=== PATIENT | female | born 1995 | race Caucasian/White ===

== ENCOUNTER 2019-12-20 09:39 | Inpatient (IN) | payer OTHER ==
[~2019-12-20] VITALS: Ht 175.3 cm; Wt 91.9 kg
[2019-12-20] VITALS (30 sets, daily range): BP systolic 120–173; BP diastolic 65–103
[~2019-12-20 09:39] MED LIST: miSOPROStol 50 MCG 1/2 TAB (S0191) PO SCH
[2019-12-20] MEDS ORDERED: MULTTAB20 PO (10:03)
--- NOTE | 2019-12-20 11:31 | HPEPDOC ---
Obstetrical History & Physical General Date of Admission Dec 20, 2019 at 09:40 History of Present Illness 24yo G1 at 41w1d presents for IOL for high BPs, concerning got GHTN vs preeclamp ana. She denies visual changes, abd pain or headaches. 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 BREAST: . ABDOMEN: Gravid and non-tender to touch. FETUS: Is vertex (VTX) by sterile vaginal examination (SVE), fetus is vertex (VTX) by Nagi. HEART RATE: Regular rate and rhythm. LUNGS: Clear to auscultation (CTA). Vital Signs/I&O Vital Signs Date Time Temp Pulse Resp B/P (MAP) Pulse Ox O2 Delivery O2 Flow Rate FiO2 12/20/19 10:23 107 140/100 (113) 12/20/19 10:06 99.2 20 Laboratory Data 24H LABS Laboratory Tests 2 12/20/19 10:04: Serology Scanned Report Hepatitis B Testing Pertinent Laboratoy Data Blood Type: O+ RBC Antibody Screen: Negative HIV: Negative Hepatitis B: Negative Rapid Plasma Reagin: Nonreactive Rubella: Immune Chlamydia/Gonorrhea: Negative Group B Streptococcus: Negative Glucose Tolerance Test: 121 Anatomy Ultrasound Placenta Location: Anterior Normal Anatomy: Yes Placenta Previa: No Vaginal Examination Dilation: 1cm Effacement: 30% Station: -3 Cervical Consistency: Firm Cervical Position: Posterior Presentation: Cephalic presentation Assessment Variability: Moderate Accelerations: Positive Decelerations: None Tocometer Contractions: No Assessment/Plan Assessment 24-year-old 1 at 41 weeks 1 day estimated gestational age with elevated blood pressure concern for gestational hypertension versus preeclampsia Reassuring status -Plan is obtained preeclamptic labs and spot urine -Induction labor -Patient and thoroughly counseled regarding induction of labor discussed medi cations also procedures performed in labor and delivery she is verbally consented for emergency surgery blood products anesthesia and desires to proceed with admission -Will initiate her induction labor with 50 g cytotec Plan Admit and orient. Top Inventory Control Executive and consent. Diet: Regular. Group B Streptococcus (GBS) negative. Labs and intravenous (IV) per unit protocol. Counseled on Pitocin and induction of labor (IOL). Anticipate normal spontaneous delivery (). C-S as appropriate. SHANE NORWOOD MD. Dec 20, 2019 11:31
[2019-12-20 11:49] LABS: HEMATOCRIT 37.7 % (36.0-47.0); HEMOGLOBIN 12.4 g/dl (12.0-15.5); MEAN CORPUSCULAR HEMOGLOBIN 29.7 pg (27.0-33.0); MEAN CORPUSCULAR HGB CONC 32.9 g/dl (32.0-36.5); MEAN CORPUSCULAR VOLUME 90.2 fl (80.0-96.0); PLATELET COUNT, AUTOMATED 242 10^3/uL (150-450); RED BLOOD COUNT 4.18 10^6/uL (4.00-5.40)
[2019-12-20 11:56] LABS: ALT/SGPT 22 U/L (12-78); BILIRUBIN,TOTAL 0.2 MG/DL (0.2-1.0); CREATININE FOR GFR 0.85 MG/DL (0.55-1.30); GLOMERULAR FILTRATION RATE > 60.0 (>60); LDH LACTATE DEHYDROGENASE 177 U/L (84-246); URIC ACID 6.4 MG/DL (2.6-6.0)
[2019-12-20 12:28] LABS: TOTAL PROTEIN,RANDOM URINE 10.7 MG/DL (0.0-12.0)
[2019-12-20] MEDS ORDERED: LACTATED RINGER'S 1000 ML IV ONE (15:15)
[2019-12-20] MEDS: miSOPROStol 50 MCG 1/2 TAB (S0191) PO SCH ×2 (16:24→22:03)
[2019-12-20] MEDS ORDERED: BUTORPHANOL 2 MG/ML INJ (J0595) IV ONE (20:45)
[2019-12-20] MEDS ORDERED: PROMETHAZINE INJ 25 MG/ML VIAL (J2550) IV ONE (20:45)
[2019-12-20] MEDS ORDERED: BUTORPHANOL 2 MG/ML INJ (J0595) IV PRN (21:00)
[2019-12-20] MEDS ORDERED: PROMETHAZINE INJ 25 MG/ML VIAL (J2550) IV PRN (21:00)
[2019-12-20] MEDS ORDERED: FENTANYL 2MCG/ML ROPIVACAINE 0.2% IN 0.9% NACL 100ML IVBAG As Ordered ONE (23:40)
[2019-12-21] VITALS (77 sets, daily range): BP systolic 109–180; BP diastolic 56–115
[2019-12-21 00:21] LABS: HEMATOCRIT 37.5 % (36.0-47.0); HEMOGLOBIN 12.3 g/dl (12.0-15.5); MEAN CORPUSCULAR HEMOGLOBIN 29.9 pg (27.0-33.0); MEAN CORPUSCULAR HGB CONC 32.8 g/dl (32.0-36.5); MEAN CORPUSCULAR VOLUME 91.2 fl (80.0-96.0); PLATELET COUNT, AUTOMATED 243 10^3/uL (150-450); RED BLOOD COUNT 4.11 10^6/uL (4.00-5.40); WHITE BLOOD COUNT 16.3 10^3/uL (4.0-10.0)
[2019-12-21] MEDS: FENTANYL/ROPIVACAINE/NACL BAG 100 ML EPIDURAL SCH ×3 (00:58→16:44)
[2019-12-21] MEDS ORDERED: ePHEDrine SULFATE 25 MG/5 ML(5MG/ML) SYRINGE IV PRN (01:45)
[2019-12-21] MEDS ORDERED: diphenhydrAMINE 50MG/ML VIAL (J1200) IV PRN ×2 (01:45→23:12)
[2019-12-21] MEDS ORDERED: EPIDURAL/PCA KEYS XX PRN (01:45)
[2019-12-21] MEDS ORDERED: NALOXONE INJ 0.4MG/1ML VIAL (J2310 PER 1MG) IV PRN ×3 (01:45→23:12)
[2019-12-21] MEDS ORDERED: REFRIGERATOR IV KEYS XX PRN (01:45)
[2019-12-21] MEDS ORDERED: ONDANSETRON 4MG/2ML VIAL IV PRN ×2 (01:45→23:12)
[2019-12-21] MEDS ORDERED: LACTATED RINGER'S 1000 ML IV PRN (01:45)
[2019-12-21] MEDS ORDERED: EPIDURAL COMMENT XX SCH (01:45)
--- NOTE | 2019-12-21 08:59 | IPNPDOC ---
Obstetrical Progress Note Date of Service Dec 21, 2019 Subjective Andrews of care note; report received from Dr. Goyal at 0730 S: Dotty is a 24yo at 41+2wks today, EDC [id number]. Pt was admitted yesterday for PDIOL/GHTN. Her Pre-E labs were negative and she remains asymptomatic today. She is s/p Cytotec x2, SROM at 2258 last PM (clear fluid), and epidural around 0100 this morning. She is comfortable with epidural in place and has no concerns at this time. Objective O: VSS, afebrile, BPs range from mild range to normotensive. FHR 135-140, minimal variability with periods of moderate and some accels, 1x variable deceleration noted. Pt has received a 300mL LR bolus and did have O2 previous to RN shift change. CTX by TOCO: q2-2.5, moderate by palpation VE: 6/80/-2, bloody show and caput palpable Laboratory Tests 12/20/19 10:54 12/20/19 23:46 Vital Signs Date Time Temp Pulse Resp B/P (MAP) Pulse Ox O2 Delivery O2 Flow Rate FiO2 12/21/19 08:11 97 148/95 (112) 12/21/19 07:22 98.2 16 Sterile Vaginal Examination Cervical Position: Anterior Postion/Presentation: Cephalic presentation Assessment and Plan Group B Streptococcus: Negative Anticipate: Vaginal Delivery Additional Comments A: 24yo at 41+2wks, entering into active labor, VSS with mild range BPs, Category II FHT d/t minimal variability. P: CEFM x2 Can use LR bolus, repositioning, and O2 for minimal variability. Fetus does respond to stimulus as evidenced by accel during VE Close monitoring of maternal/ status Monitor for s/sx of Pre-E Consider pitocin augmentation if labor slows or ctx space out Consult with OB as indicated Anticipate HANNA SHER CNM Dec 21, 2019 08:59
[2019-12-21] MEDS ORDERED: OXYTOCIN 30 UNITS IN 0.9% NaCl 500ML IV BAG (J2590) As Ordered ONE (11:42)
[2019-12-21] MEDS ORDERED: OXYTOCIN DRIP 30 UNITS in IV 1 EA IV SCH (13:30)
--- NOTE | 2019-12-21 14:10 | IPNPDOC ---
Obstetrical Progress Note Date of Service Dec 21, 2019 Subjective Labor Progress Note S: Dotty is a 24yo at 41+2wks, currently in active labor s/p IOL for PDIOL/GHTN. She is very comfortable with her epidural and feeling some rectal pressure. She consents to cervical exam at this time. Objective O: VSS, afebrile, BPs ranging from normotensive to mild range, pt remains asymptomatic at this time FHR 150s, moderate variability with periods of minimal variability, + accels, no decelerations noted *Pt noted to have a period of tachycardia; pt remains afebrile; 500mL LR was administered and tachycardia resolved CTX by TOCO: spaced to 3-6 minutes apart VE: 7/90/0 Vital Signs Date Time Temp Pulse Resp B/P (MAP) Pulse Ox O2 Delivery O2 Flow Rate FiO2 12/21/19 13:39 98 134/82 (99) 12/21/19 12:41 99.1 18 Assessment Heart Rate Tracing: Category I (at time of exam) Tocometer Contractions: Yes Frequency: irregular Sterile Vaginal Examination Postion/Presentation: Cephalic presentation Assessment and Plan Status: Reassuring Group B Streptococcus: Negative Anticipate: Vaginal Delivery Additional Comments A: 24yo at 41+2wks, active labor, but now with slowed progress. Category I FHT at time of exam. P: CEFM x2 Close monitoring of maternal/ status Close monitoring for s/sx of chorio Close monitoring of BP and s/sx of Pre-E Start pitocin augmentation per low dose protocol Interventions PRN for Category II FHT Consult with OB if indicated Anticipate HANNA MEJIA CNM Dec 21, 2019 14:09
[2019-12-21] MEDS ORDERED: fentaNYL 100 MCG/2 ML INJECTION (J3010) As Ordered ONE ×2 (15:41→23:10)
[2019-12-21] MEDS ORDERED: ACETAMINOPHEN 500 MG TAB As Ordered ONE (15:41)
[2019-12-21] MEDS ORDERED: ACETAMINOPHEN 500 MG TAB PO ONE (15:45)
[2019-12-21] MEDS ORDERED: AMPICILLIN 2 GM VIAL (J0290 PER 500MG) As Ordered ONE (15:47)
[2019-12-21] MEDS: LR 1,000 ML IV SCH ×2 (15:57→22:18)
[2019-12-21] MEDS: AMPICILLIN SOD 2 GM in D5W MINI-BAG PLUS 100 ML IV SCH ×2 (15:58→22:00)
[2019-12-21] MEDS ORDERED: LABETALOL 100MG/20ML VIAL IV STA (15:59)
--- NOTE | 2019-12-21 16:28 | IPNPDOC ---
Obstetrical Progress Note Date of Service Dec 21, 2019 Subjective S: 24yo at 41+2wks, feeling more pain with contractions, desiring epidural top-off for pain control. Pt does not have desire or urge to push. Pt denies FRIEDMAN/Visual changes/ruq pain; denies feeling chills. Objective O: Febrile (temp 100.6 rectally) and now severe range BPs (151-180/102-111) FHR 160s, moderate variability, early decelerations noted CTX q2-3 minutes Pitocin running at 2mu/min VE: 9/100/0 Vital Signs Date Time Temp Pulse Resp B/P (MAP) Pulse Ox O2 Delivery O2 Flow Rate FiO2 12/21/19 14:38 99.6 90 147/92 (110) 12/21/19 12:41 18 Assessment Heart Rate Tracing: Category II Tocometer Contractions: Yes Sterile Vaginal Examination Postion/Presentation: Cephalic presentation Assessment and Plan Anticipate: Vaginal Delivery Additional Comments A: 24yo at 41+2wks, now with severe range BPs and diagnosis of chorio (based on maternal temp and tachycardia); Category II FHT d/t tachycardia. P: Consulted with Dr. Hooks, will administer 20mg labetalol IV push over 2 minutes and follow ACOG labetalol algorithm; close monitoring of BPs Start ampicillin 2g q6h and gentamycin x1 (450mg based on 5mg/kg protocol) 1gm tylenol PO administered Close monitoring of maternal status Transferred care to Dr. Hooks Anticipate HANNA MEJIA CNM Dec 21, 2019 16:28
[2019-12-21] MEDS ORDERED: GENTAMICIN 450 MG in D5W 50 ML IV ONE (17:00)
--- NOTE | 2019-12-21 17:30 | IPNPDOC ---
Text Note Date of Service The patient was seen on 12/21/19. NOTE REVIEW OF PROGRESS TO DATE . 24 Y.O AT 41 .2 WEEKS ADMITTED FOR IOL AT 41.1 WEEKS HX GHTN VERSUS PRE E . TO DATE HAS 2 CYTOTEC AND AUGMENT WITH PITOCIN , NOW AT 2 MUNITS . ADMISSION BP 140/100 THEN HAD 2 SEVERE RANGE BP WITH NO CLONUS NO RUQ PAIN NO VISUAL DISTURBANCES . HAD ELEVATED RECTAL TEMP HOWEVER TEMPORAL DID NOT CORRELATE TO RECTAL TEMPERATURE. PLAN OF CARE WAS LABETALOL 20 MG IV PER PROTOCOL TO MANAGE SEVERE RANGE BLOOD PRESSURES . TYLENOL OR TEMPERATURE . WITH HYDRATION AND TOP UP EPIDURAL FOR PAIN CONTROL BP RANGE DOWN TO MID RANGE BP ALSO VARIABILITY NORMAL RANGE 120-150 MODERATE AND BASE LINE NORMAL . PELVIC EXAM 9 CM DILATED OT FACING RIGHT NO INCREASE HEAT IN VAGINA NO MOULDING NOT WELL APPLIED -3 STATION. PLAN IS CONTROL BP MONITOR TEMPERATURE HAVE ADEQUATE CONTRACTIONS REASSESSMENT 1.5 HOURS FOR PROGRESS. PATIENT EXPRESSED UNDERSTANDING VS,Fishbone, I+O VS, Fishbone, I+O Vital Sign - Last 24 Hours 12/20/19 12/20/19 12/20/19 12/20/19 17:56 18:25 18:55 19:25 Temp 98.3 Pulse 98 86 85 91 Resp 18 B/P (MAP) 134/95 (108) 139/74 (95) 136/75 (95) 139/97 (111) 12/20/19 12/20/19 12/20/19 12/20/19 19:55 20:26 20:55 21:14 Pulse 81 88 80 Resp 18 B/P (MAP) 143/94 (110) 135/98 (110) 145/94 (111) 12/20/19 12/20/19 12/20/19 12/20/19 21:17 21:46 22:15 22:46 Temp 98.2 98.4 Pulse 80 88 86 93 Resp 18 18 B/P (MAP) 140/91 (107) 144/94 (111) 130/67 (88) 171/96 (121) 12/20/19 12/20/19 12/20/19 12/21/19 23:17 23:21 23:46 00:16 Pulse 97 110 110 120 B/P (MAP) 173/93 (119) 142/83 (102) 148/84 (105) 147/75 (99) 12/21/19 12/21/19 12/21/19 12/21/19 00:44 00:45 00:51 00:54 Temp 98.7 Pulse 108 113 110 109 Resp 20 B/P (MAP) 152/86 (108) 142/79 (100) 154/97 (116) 146/98 (114) 12/21/19 12/21/19 12/21/19 12/21/19 00:56 01:01 01:06 01:12 Pulse 110 101 106 104 B/P (MAP) 135/94 (108) 131/86 (101) 121/85 (97) 125/80 (95) 12/21/19 12/21/19 12/21/19 12/21/19 01:16 01:21 01:27 01:31 Pulse 107 110 111 106 B/P (MAP) 127/78 (94) 130/83 (99) 121/83 (96) 118/76 (90) 12/21/19 12/21/19 12/21/19 12/21/19 01:36 02:08 02:37 03:08 Temp 98.2 Pulse 102 96 96 75 Resp 18 B/P (MAP) 112/68 (83) 117/66 (83) 109/56 (73) 125/74 (91) 12/21/19 12/21/19 12/21/19 12/21/19 03:37 04:07 04:38 05:08 Temp 98.0 Pulse 81 94 82 90 Resp 18 B/P (MAP) 119/76 (90) 118/82 (94) 137/74 (95) 140/93 (109) 12/21/19 12/21/19 12/21/19 12/21/19 05:37 06:08 06:37 07:08 Temp 98.2 Pulse 77 73 76 100 Resp 18 16 B/P (MAP) 127/82 (97) 125/77 (93) 128/83 (98) 124/81 (95) 12/21/19 12/21/19 12/21/19 12/21/19 07:22 07:37 08:09 08:11 Temp 98.2 Pulse 100 99 122 97 Resp 16 B/P (MAP) 124/81 (95) 132/85 (101) 146/115 (125) 148/95 (112) 12/21/19 12/21/19 12/21/19 12/21/19 08:40 09:38 10:10 10:38 Pulse 110 97 100 120 Resp 18 B/P (MAP) 152/94 (113) 141/86 (104) 153/98 (116) 156/98 (117) 12/21/19 12/21/19 12/21/19 12/21/19 11:09 11:38 12:08 12:38 Temp 99.8 Pulse 107 98 106 92 B/P (MAP) 132/87 (102) 143/91 (108) 154/101 (118) 159/97 (117) 12/21/19 12/21/19 12/21/19 12/21/19 12:41 13:09 13:39 14:08 Temp 99.1 Pulse 104 96 98 100 Resp 18 B/P (MAP) 146/95 (112) 126/80 (95) 134/82 (99) 140/83 (102) 12/21/19 12/21/19 12/21/19 12/21/19 14:38 15:09 15:19 15:33 Temp 99.6 Pulse 90 98 105 105 B/P (MAP) 147/92 (110) 175/98 (123) 150/101 (117) 151/110 (124) 12/21/19 12/21/19 12/21/19 12/21/19 15:38 15:46 15:48 15:57 Temp 100.6 Pulse 114 100 102 105 Resp 20 B/P (MAP) 164/102 (122) 157/102 (120) 161/104 (123) 167/110 (129) 12/21/19 12/21/19 12/21/19 12/21/19 16:12 16:16 16:17 16:22 Pulse 101 101 100 103 B/P (MAP) 180/111 (134) 180/111 165/105 (125) 149/101 (117) 12/21/19 12/21/19 12/21/19 12/21/19 16:33 16:43 16:53 17:03 Temp 98.9 Pulse 99 101 97 96 Resp 16 B/P (MAP) 152/95 (114) 153/93 (113) 133/74 (93) 132/72 (92) Laboratory Tests 12/20/19 23:46 Vital Signs Date Time Temp Pulse Resp B/P (MAP) Pulse Ox O2 Delivery O2 Flow Rate FiO2 12/21/19 17:03 96 132/72 (92) 12/21/19 16:43 98.9 16 I&O- Last 24 Hours up to 6 AM 12/21/19 05:59 Intake Total 500 ml Balance 500 ml Arsenio Hooks MD Dec 21, 2019 17:23
--- NOTE | 2019-12-21 20:26 | IPNPDOC ---
Text Note Date of Service The patient was seen on 12/21/19. NOTE review progress to date. 2000 hours adequate contractions on 12 munits Pitocin patient afebrile blood pressure stable pelvic exam now small anterior lip no moulding no increased heat in vagina . plan is continue reassess 1 hour VS,Fishbone, I+O VS, Fishbone, I+O Laboratory Tests 12/20/19 23:46 Vital Signs Date Time Temp Pulse Resp B/P (MAP) Pulse Ox O2 Delivery O2 Flow Rate FiO2 12/21/19 19:10 90 136/80 (98) 12/21/19 16:43 98.9 16 I&O- Last 24 Hours up to 6 AM 12/21/19 06:00 Intake Total 500 ml Balance 500 ml Vital Signs/I&O Vital Signs Date Time Temp Pulse Resp B/P (MAP) Pulse Ox O2 Delivery O2 Flow Rate FiO2 12/21/19 19:10 90 136/80 (98) 12/21/19 18:55 102 130/78 (95) 12/21/19 18:40 97 137/79 (98) 12/21/19 18:25 99 129/76 (93) 12/21/19 17:53 94 133/83 (100) 12/21/19 17:43 96 134/89 (104) 12/21/19 17:34 97 138/92 (107) 12/21/19 17:23 101 141/93 (109) 12/21/19 17:03 96 132/72 (92) 12/21/19 16:53 97 133/74 (93) 12/21/19 16:43 98.9 101 16 153/93 (113) 12/21/19 16:33 99 152/95 (114) 12/21/19 16:22 103 149/101 (117) 12/21/19 16:17 100 165/105 (125) 12/21/19 16:16 101 180/111 12/21/19 16:12 101 180/111 (134) 12/21/19 15:57 105 167/110 (129) 12/21/19 15:48 102 161/104 (123) 12/21/19 15:46 100 157/102 (120) 12/21/19 15:38 100.6 114 20 164/102 (122) 12/21/19 15:33 105 151/110 (124) 12/21/19 15:19 105 150/101 (117) 12/21/19 15:09 98 175/98 (123) 12/21/19 14:38 99.6 90 147/92 (110) 12/21/19 14:08 100 140/83 (102) 12/21/19 13:39 98 134/82 (99) 12/21/19 13:09 96 126/80 (95) 12/21/19 12:41 99.1 104 18 146/95 (112) 12/21/19 12:38 92 159/97 (117) 12/21/19 12:08 106 154/101 (118) 12/21/19 11:38 98 143/91 (108) 12/21/19 11:09 99.8 107 132/87 (102) 12/21/19 10:38 120 156/98 (117) 12/21/19 10:10 100 18 153/98 (116) 12/21/19 09:38 97 141/86 (104) 12/21/19 08:40 110 152/94 (113) 12/21/19 08:11 97 148/95 (112) 12/21/19 08:09 122 146/115 (125) 12/21/19 07:37 99 132/85 (101) 12/21/19 07:22 98.2 100 16 124/81 (95) 12/21/19 07:08 98.2 100 16 124/81 (95) 12/21/19 06:37 76 18 128/83 (98) 12/21/19 06:08 73 125/77 (93) 12/21/19 05:37 77 127/82 (97) 12/21/19 05:08 90 140/93 (109) 12/21/19 04:38 98.0 82 18 137/74 (95) 12/21/19 04:07 94 118/82 (94) 12/21/19 03:37 81 119/76 (90) 12/21/19 03:08 75 125/74 (91) 12/21/19 02:37 98.2 96 18 109/56 (73) 12/21/19 02:08 96 117/66 (83) 12/21/19 01:36 102 112/68 (83) 12/21/19 01:31 106 118/76 (90) 12/21/19 01:27 111 121/83 (96) 12/21/19 01:21 110 130/83 (99) 12/21/19 01:16 107 127/78 (94) 12/21/19 01:12 104 125/80 (95) 12/21/19 01:06 106 121/85 (97) 12/21/19 01:01 101 131/86 (101) 12/21/19 00:56 110 135/94 (108) 12/21/19 00:54 109 146/98 (114) 12/21/19 00:51 110 154/97 (116) 12/21/19 00:45 113 142/79 (100) 12/21/19 00:44 98.7 108 20 152/86 (108) 12/21/19 00:16 120 147/75 (99) 12/20/19 23:46 110 148/84 (105) 12/20/19 23:21 110 142/83 (102) 12/20/19 23:17 97 173/93 (119) 12/20/19 22:46 98.4 93 18 171/96 (121) 12/20/19 22:15 86 130/67 (88) 12/20/19 21:46 88 144/94 (111) 12/20/19 21:17 98.2 80 18 140/91 (107) 12/20/19 21:14 18 12/20/19 20:55 80 145/94 (111) 12/20/19 20:26 88 135/98 (110) Intake & Output 12/21/19 06:00 Intake Total 500 ml Balance 500 ml Laboratory Tests 12/20/19 23:46: White Blood Count 16.3H, Red Blood Count 4.11, Hemoglobin 12.3, Hematocrit 37.5, Mean Corpuscular Volume 91.2, Mean Corpuscular Hemoglobin 29.9, Mean Corpuscular Hemoglobin Concent 32.8, Red Cell Distribution Width 12.8, Platelet Count 243, Nucleated Red Blood Cells % (auto) 0.0 Current Medications Medications (Trade) Dose Ordered Sig/Jannie Route PRN Reason Start Time Stop Time Status Last Admin Dose Admin Ampicillin Sodium 2 gm/Dextrose 100 ml @ 200 mls/hr Q6H IV 12/21/19 16:00 12/21/19 22:29 12/21/19 15:58 200 MLS/HR Lactated Ringer's 1,000 ml @ 125 mls/hr Q8H IV 12/21/19 13:22 12/21/19 15:57 125 MLS/HR Misoprostol (Cytotec) 50 mcg Q4H PO 12/20/19 16:00 12/20/19 22:03 50 MCG Oxytocin 30 units/ IV Miscellaneous Supplies 500 ml @ 0 mls/hr DRIP IV 12/21/19 13:30 12/21/19 15:58 2 MLS/HR Ropivacaine/ Fentanyl/NS 100 ml @ 10 mls/hr Q10H EPIDURAL 12/21/19 01:45 12/24/19 01:44 12/21/19 16:44 10 MLS/HR Vital Signs Date Time Temp Pulse Resp B/P (MAP) Pulse Ox O2 Delivery O2 Flow Rate FiO2 12/21/19 19:10 90 136/80 (98) 12/21/19 16:43 98.9 16 I&O- Last 24 Hours up to 6 AM 12/21/19 06:00 Intake Total 500 ml Balance 500 ml Laboratory Data 24H LABS Laboratory Tests 2 12/20/19 23:46: Nucleated Red Blood Cells % (auto) 0.0 CBC/BMP Laboratory Tests 12/20/19 23:46 Arsenio Hooks MD Dec 21, 2019 20:22
[2019-12-21] MEDS ORDERED: BICITRA 30ML SOLN UDC PO ONE (22:00)
[2019-12-21] MEDS ORDERED: AZITHROMYCIN INJ 500 MG, VIAL MATE ADAPTER 1 EACH in D5W 250 ML IV ONE (22:00)
[2019-12-21] MEDS ORDERED: BUPIVACAINE HCL 0.25% 10ML VIAL SC ONE (22:00)
[2019-12-21] MEDS ORDERED: ACETAMINOPHEN 650 MG SUPP PR SCH (22:00)
[2019-12-21] MEDS ORDERED: ceFAZolin SOD 2 GM in IV 1 EA IV ONE (22:00)
[2019-12-21 22:29] LABS: HEMATOCRIT 36.8 % (36.0-47.0); HEMOGLOBIN 11.8 g/dl (12.0-15.5); MEAN CORPUSCULAR HEMOGLOBIN 29.6 pg (27.0-33.0); MEAN CORPUSCULAR HGB CONC 32.1 g/dl (32.0-36.5); MEAN CORPUSCULAR VOLUME 92.2 fl (80.0-96.0); PLATELET COUNT, AUTOMATED 213 10^3/uL (150-450); RED BLOOD COUNT 3.99 10^6/uL (4.00-5.40); WHITE BLOOD COUNT 20.4 10^3/uL (4.0-10.0)
--- NOTE | 2019-12-21 22:37 | IPNPDOC ---
Text Note Date of Service The patient was seen on 12/21/19. NOTE 2000 hours -2200 hours reviewed progress adequate contractions noted category 2 strip afebrile no cervical change no progress discussed cs patient agrees with plan reviewed risks re hemorrhage infection perforation reoperation remote blood transfusion remote hysterectomy for life threatening bleeding infant to NICU and laceration. expressed understanding signed consent VS,Rodrigobone, I+O VS, Fishbone, I+O Laboratory Tests 12/20/19 23:46 Vital Signs Date Time Temp Pulse Resp B/P (MAP) Pulse Ox O2 Delivery O2 Flow Rate FiO2 12/21/19 22:06 115 143/98 (113) 12/21/19 21:17 99.0 18 I&O- Last 24 Hours up to 6 AM 12/21/19 06:00 Intake Total 500 ml Balance 500 ml Arsenio Hooks MD Dec 21, 2019 22:29
[2019-12-21] MEDS ORDERED: OXYTOCIN INJ 10 UNITS/ML VIAL (J2590) As Ordered ONE ×2 (22:38→23:44)
[2019-12-21] MEDS ORDERED: LIDOCAINE PRES-FREE 2% 10ML AMP As Ordered ONE ×2 (22:38→23:32)
[2019-12-21] MEDS ORDERED: ONDANSETRON 4MG/2ML VIAL As Ordered ONE (22:38)
[2019-12-21] MEDS ORDERED: MORPHINE PRES-FREE INJ 10 MG/10 ML VIAL (J2274) As Ordered ONE (22:38)
[2019-12-21] MEDS ORDERED: KETAMINE HCL 200 MG/20 ML VIAL As Ordered ONE (23:02)
[2019-12-21] MEDS ORDERED: METOCLOPRAMIDE INJ 10MG/2ML VIAL (J2765 PER 1) IV PRN (23:12)
[2019-12-21 23:17] LABS: CORD GAS ABE V -3.2; CORD GAS HCO3 V 22.4 MEQ/L; CORD GAS O2 SAT V 55.4 %; CORD GAS PCO2 V 42.3 mmHg; CORD GAS PH V 7.342 UNITS; CORD GAS PO2 V 23.8 mmHg; CORD GAS SBC V 20.7 MEQ/L; CORD GAS TCO2 V 23.7 MEQ/L
[2019-12-21 23:18] LABS: CORD GAS ABE A -4.1; CORD GAS HCO3 A 21.7 MEQ/L; CORD GAS O2 SAT A 55.6 %; CORD GAS PCO2 A 42.4 mmHg; CORD GAS PH A 7.327 UNITS
[2019-12-21] MEDS ORDERED: propofoL 200 MG/20 ML VIAL As Ordered ONE (23:27)
[2019-12-22] VITALS (8 sets, daily range): BP systolic 120–161; BP diastolic 68–109
[2019-12-22] MEDS ORDERED: LR 1,000 ML IV SCH ×2 (00:13→00:45)
[2019-12-22] MEDS ORDERED: MOM 30ML SUSPENSION UDC PO PRN (00:15)
[2019-12-22] MEDS ORDERED: OXYTOCIN INJ 10 UNITS/ML VIAL (J2590) IV ONE (00:15)
[2019-12-22] MEDS ORDERED: ACETAMINOPHEN 650 MG SUPP PR PRN (00:15)
[2019-12-22] MEDS ORDERED: ANUSOL HC CREAM 30GM TOP PRN (00:15)
[2019-12-22] MEDS ORDERED: DOCUSATE SODIUM 100 MG CAP PO PRN (00:15)
[2019-12-22] MEDS ORDERED: MEASLES,MUMPS,RUBELLA VACCINE INJ (MMR-II) (90707) SC SCH (00:15)
[2019-12-22] MEDS ORDERED: ACETAMINOPHEN 500 MG TAB PO PRN (00:15)
[2019-12-22] MEDS ORDERED: ACETAMINOPHEN TAB 650MG DOSE (2X325MG) PO PRN (00:15)
[2019-12-22] MEDS ORDERED: METHYLERGONOVINE MALEATE 0.2 MG TAB PO PRN (00:15)
[2019-12-22] MEDS ORDERED: OXYTOCIN DRIP 30 UNITS in IV 1 EA IV ONE (00:15)
[2019-12-22] MEDS ORDERED: RHOGAM 300 MCG (1500 IU) INJ (J2790) IM SCH (00:15)
[2019-12-22] MEDS ORDERED: LABETALOL 100MG/20ML VIAL As Ordered ONE (00:18)
[2019-12-22] MEDS ORDERED: LABETALOL 100MG/20ML VIAL IV ONE (00:30)
[2019-12-22] MEDS ORDERED: fentaNYL 100 MCG/2 ML INJECTION (J3010) As Ordered ONE (00:34)
[2019-12-22] MEDS: fentaNYL 100 MCG/2 ML INJECTION (J3010) IV PRN ×3 (00:39→01:33)
[2019-12-22] MEDS ORDERED: METOCLOPRAMIDE INJ 10MG/2ML VIAL (J2765 PER 1) IV PRN (00:45)
[2019-12-22] MEDS ORDERED: PERCOCET 5MG/325MG TAB PO PRN (00:45)
[2019-12-22] MEDS ORDERED: ONDANSETRON 4MG/2ML VIAL IV PRN (00:45)
--- NOTE | 2019-12-22 00:57 | IPNPDOC ---
Text Note Date of Service The patient was seen on 12/22/19. NOTE review post op recovery severe range blood pressures . Patient did not have good pain control for procedure as patient is GHTN possible pr e e labetalol protocol was instituted . Also antibiotics initiated re CHORIO for 24 hours Reassessment in 1 hour re blood pressure . VS,Fishbone, I+O VS, Fishbone, I+O Laboratory Tests 12/21/19 22:25 Vital Signs Date Time Temp Pulse Resp B/P (MAP) Pulse Ox O2 Delivery O2 Flow Rate FiO2 12/22/19 00:31 18 98 Room Air 12/22/19 00:25 99.3 103 158/109 (125) I&O- Last 24 Hours up to 6 AM 12/22/19 05:59 Intake Total 1718 ml Output Total 1850 ml Balance -132 ml Arsenio Hooks MD Dec 22, 2019 00:56
[2019-12-22] MEDS: KETOROLAC 30 MG/ML 1ML VIAL IV SCH ×4 (01:20→18:44)
[2019-12-22] MEDS ORDERED: KETOROLAC 30 MG/ML 1ML VIAL As Ordered ONE (01:23)
[2019-12-22] MEDS: AMPICILLIN SOD/SULBACTAM SOD 3 GM in D5W MINI-BAG PLUS 100 ML IV SCH ×4 (06:04→23:50)
--- NOTE | 2019-12-22 09:42 | RO ---
DATE OF OPERATION: 12/21/2019 PREOPERATIVE DIAGNOSES: Chorioamnionitis, gestational hypertension, post dates, failure to progress, cephalopelvic disproportion. POSTOPERATIVE DIAGNOSES: Chorioamnionitis, gestational hypertension, post dates, failure to progress, cephalopelvic disproportion. OPERATION PROPOSED: Primary section. OPERATION PERFORMED: Primary section. ANESTHESIA: Epidural plus conscious sedation plus local anesthetic for intraperitoneal procedures. ESTIMATED BLOOD LOSS: 500 mL. SURGEON: Arsenio Hooks MD INTERNAL AFFAIRS INVESTIGATOR: Dr. Ariza for extraction, retraction, visualization, without which the procedure could not be completed. DESCRIPTION OF PROCEDURE: After adequate timeout, prepped and draped in the supine position. Henriquez catheter in the bladder draining clear urine. Acetaminophen suppository 1300 mg per rectum. Sequentials in place. Appropriate antibiotics preoperatively. A Pfannenstiel incision was made two fingerbreadths above the symphysis pubis, passing through abdominal layers, securing hemostasis. Opening the peritoneal cavity, we noticed there was bruising where the lower segment was from failure to descend and she was (cephalopelvic disproportion) CPD. A Mobius was placed and the bladder was reflected well down anteriorly. A low transverse incision was made. Clear lochia was noted. The baby was in the persistent occiput posterior (POP) position. We delivered a live- male infant using one blade of the forceps to elbow the baby out, weighing 7 pounds 7 ounce (3380 grams), Apgars of7 and 8 and one and five minutes respectively. Arterial pH 7.11, base excess -4.1, venous pH 7.34, base excess - 3.2. The placenta was manually removed. Three vessels in the cord, membranes and tissues intact. Aerobic and anaerobic cultures were taken from the intrauterine cavity. The uterus contracted well down on Pitocin. The lower segment was oversewn in the usual fashion in two layers imbricating the second layer. With good hemostasis, and instrument and pad count correct, the Mobius was removed. Both ovaries and tubes appeared to be normal. Rechecking, the uterus was well contracted. The abdomen was then closed with running stitches through the peritoneum, same for the fascia, interrupted for subcutaneous and Dexon for the skin. Marcaine 0.25% 10 mL and an Optifoam dressing was applied. The patient was then taken back to recovery in good condition. [facility]
[2019-12-22] MEDS: PRENATAL VITAMINS CHEWABLE TABLET PO SCH (11:37)
[2019-12-22] MEDS: PERCOCET 5MG/325MG TAB PO PRN ×2 (18:01→21:53)
[2019-12-23] MEDS ORDERED: IBUPROFEN 600MG TAB PO PRN (01:00)
[2019-12-23] MEDS ORDERED: IBUPROFEN 800 MG TAB PO SCH (02:15)
[2019-12-23] MEDS: PERCOCET 5MG/325MG TAB PO PRN ×3 (02:33→19:25)
[2019-12-23 05:42] VITALS: BP 131/81
[2019-12-23] MEDS: AMPICILLIN SOD/SULBACTAM SOD 3 GM in D5W MINI-BAG PLUS 100 ML IV SCH (05:56)
[2019-12-23 06:43] LABS: HEMATOCRIT 30.4 % (36.0-47.0); MEAN CORPUSCULAR HEMOGLOBIN 29.7 pg (27.0-33.0); MEAN CORPUSCULAR HGB CONC 31.9 g/dl (32.0-36.5); PLATELET COUNT, AUTOMATED 182 10^3/uL (150-450); RED BLOOD COUNT 3.27 10^6/uL (4.00-5.40); WHITE BLOOD COUNT 14.1 10^3/uL (4.0-10.0)
[2019-12-23 06:48] LABS: HEMOGLOBIN 9.7 g/dl (12.0-15.5)
[2019-12-23] MEDS ORDERED: INFLUENZA QUADRIVALENT PF VACCINE 0.5ML SYRINGE IM ONE (09:00)
[2019-12-23] MEDS: PRENATAL VITAMINS CHEWABLE TABLET PO SCH (10:34)
[2019-12-23] MEDS: IBUPROFEN 800 MG TAB PO PRN ×2 (10:34→17:25)
[2019-12-23 14:09] VITALS: BP 143/81
[2019-12-23 17:45] VITALS: BP 128/78
[2019-12-23 20:00] VITALS: BP 133/81
[2019-12-24 02:00] VITALS: BP 151/75
[2019-12-24 06:00] VITALS: BP 155/93
[2019-12-24] MEDS: IBUPROFEN 800 MG TAB PO PRN (06:15)
[2019-12-24] MEDS ORDERED: IBUP80TA PO (08:09)
[2019-12-24] MEDS ORDERED: DOCU100C16 PO (08:09)
[2019-12-24] MEDS ORDERED: PERCOCET PO (08:09)
[2019-12-24] MEDS: PRENATAL VITAMINS CHEWABLE TABLET PO SCH (08:18)
[2019-12-24] MEDS: PERCOCET 5MG/325MG TAB PO PRN (10:27)
--- NOTE | 2019-12-27 11:09 | DS ---
DATE OF ADMISSION: 12/20/2019 DATE OF DISCHARGE: 12/24/2019 BRIEF HISTORY: This lady is a 24-year-old 1, now para 1, who was admitted at 41 weeks for induction of labor for gestational hypertension versus pre-E. She had a primary section for chorioamnionitis, gestation hypertension, post dates, failure to progress and cephalopelvic disproportion. She delivered a live male infant 7 pounds 7 ounces, 3380 grams, Apgars of 7 and 8 at one and five minutes respectively. Arterial pH 7.37, base excess - 4.1, venous pH 7.34, base excess -3.2. She had an epidural plus she had conscious sedation plus local. On her fourth postoperative day we discussed phlebitis, cystitis, mastitis, endometritis, and cellulitis, diet, exercise, pain management, perineal, breast, and wound care. On discharge her blood pressure was 155/92, respirations 18, pulse 91, temperature is 99.2. Her admitting hemoglobin was 12.4, hematocrit 37.7, and platelets were 242. Her discharge hemoglobin was 9.7, hematocrit was 30.4 and platelets were 182. She denied any symptoms of her anemia and she will be taking her vitamins and supplemental iron at home. The rest of the examination unremarkable. Normocephalic, atraumatic. Neck: Full range of motions. Pupils equal and reactive to light. Distal pulses are symmetric. No evidence of deep venous thrombosis (DVT), pulmonary embolism (PE), or superficial phlebitis. Chest is clear bilaterally to bases. No wheezes or rhonchi. No costovertebral angle (CVA) tenderness. Abdomen soft. Four-quadrant bowel sounds are noted. Incision is clean and dry. Still has the dressing in place. No rashes, lesions, or pruritus. No arthralgias, myalgias, no complaints of joint pain, no complaint of cough, wheeze, shortness of breath or dyspnea on exertion. No nausea, vomiting, or diarrhea, or constipation. No urgency or frequency. In summary we have a term gestation delivered by primary section, a live male infant. Plans are for one week check of blood pressure at [facility], a two week incision check and six weeks check. All questions are answered. Forty minute discussion. 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 [facility]ELLA
== END 2019-12-24 10:30 | disposition home or self-care (01) | DRG 771 ==
LOC: M LDO 09:39 → M LDI 09:40 → M OBS 12-22 06:14
PROVIDERS: ADMIT Obstetrics & Gynecology; ATTEND Obstetrics & Gynecology
PROC: 3E0DXGC Introduction of Other Therapeutic Substance into Mouth and Pharynx, External Approach (ICD-10-PCS; 2019-12-20)
PROC: 3E033VJ Introduction of Other Hormone into Peripheral Vein, Percutaneous Approach (ICD-10-PCS; 2019-12-20)
PROC: 10D00Z1 Extraction of Products of Conception, Low, Open Approach (ICD-10-PCS; principal; 2019-12-21 23:00)
DX: O48.0 Post-term pregnancy (principal); O41.1230 Chorioamnionitis, third trimester, not applicable or unspecified; Z37.0 Single live birth; Z3A.41 41 weeks gestation of pregnancy; O13.4 Gestational [pregnancy-induced] hypertension without significant proteinuria, complicating childbirth; O62.0 Primary inadequate contractions; O33.4XX0 Maternal care for disproportion of mixed maternal and fetal origin, not applicable or unspecified

== ENCOUNTER 2021-06-15 05:16 | Inpatient (IN) | payer OTHER ==
[2021-06-15] VITALS (8 sets, daily range): BP systolic 105–126; BP diastolic 60–78
[~2021-06-15] VITALS: Ht 175.3 cm; Wt 93.1 kg
[~2021-06-15 05:16] MED LIST changes: +DOCU100C16 PO; +IBUP80TA PO; +MULTTAB20 PO; +PERCOCET PO; +PREN1TAB14 PO; -miSOPROStol 50 MCG 1/2 TAB (S0191) PO SCH
[2021-06-15] MEDS ORDERED: HOME MED LIST COMPLETE! XX SCH (05:20)
[2021-06-15] MEDS ORDERED: BICITRA 30ML SOLN UDC PO ONE (05:25)
[2021-06-15] MEDS ORDERED: LR 1,000 ML IV SCH ×2 (05:25→10:55)
[2021-06-15] MEDS ORDERED: LACTATED RINGER'S 1000 ML IV ONE (05:25)
[2021-06-15] MEDS ORDERED: ceFAZolin SOD 2 GM in IV 1 EA IV ONE (05:25)
[2021-06-15 06:09] LABS: HEMATOCRIT 34.1 % (36.0-47.0); HEMOGLOBIN 11.1 g/dl (12.0-15.5); MEAN CORPUSCULAR HEMOGLOBIN 27.5 pg (27.0-33.0); MEAN CORPUSCULAR HGB CONC 32.6 g/dl (32.0-36.5); MEAN CORPUSCULAR VOLUME 84.6 fl (80.0-96.0); PLATELET COUNT, AUTOMATED 264 10^3/uL (150-450); RED BLOOD COUNT 4.03 10^6/uL (4.00-5.40); WHITE BLOOD COUNT 12.8 10^3/uL (4.0-10.0)
[2021-06-15] MEDS ORDERED: MORPHINE PRES-FREE INJ 10 MG/10 ML VIAL As Ordered ONE (07:09)
[2021-06-15] MEDS ORDERED: OXYTOCIN 30 UNITS IN 0.9% NaCl 500ML IV BAG (J2590) As Ordered ONE ×2 (07:10→09:51)
[2021-06-15] MEDS ORDERED: ePHEDrine SULFATE 25 MG/5 ML(5MG/ML) SYRINGE As Ordered ONE (07:10)
[2021-06-15] MEDS ORDERED: PHENYLephrine 500MCG 5ML (100MCG/ML) SYRINGE As Ordered ONE (07:10)
[2021-06-15] MEDS ORDERED: NALOXONE INJ 0.4MG/1ML VIAL (J2310 PER 1MG) IV PRN ×2 (07:57)
[2021-06-15] MEDS ORDERED: ONDANSETRON 4MG/2ML VIAL IV PRN ×3 (07:57→10:55)
[2021-06-15] MEDS ORDERED: METOCLOPRAMIDE INJ 10MG/2ML VIAL (J2765 PER 1) IV PRN (07:57)
[2021-06-15] MEDS ORDERED: ONDANSETRON 4MG/2ML VIAL As Ordered ONE (08:06)
[2021-06-15] MEDS ORDERED: METOCLOPRAMIDE INJ 10MG/2ML VIAL (J2765 PER 1) As Ordered ONE (08:06)
[2021-06-15] MEDS ORDERED: KETOROLAC 60MG 2ML VIAL As Ordered ONE (08:26)
[2021-06-15 08:48] LABS: CORD GAS ABE V -5.3; CORD GAS HCO3 V 21.2 MEQ/L; CORD GAS O2 SAT V 50.1 %; CORD GAS PCO2 V 44.5 mmHg; CORD GAS PH V 7.296 UNITS; CORD GAS TCO2 V 22.6 MEQ/L
[2021-06-15 08:49] LABS: CORD GAS ABE A -6.4; CORD GAS HCO3 A 22.4 MEQ/L; CORD GAS PCO2 A 57.2 mmHg; CORD GAS PH A 7.21 UNITS; CORD GAS PO2 A 13.6 mmHg; CORD GAS SBC A 17.4 MEQ/L; CORD GAS TCO2 A 24.1 MEQ/L
[2021-06-15] MEDS: DOCUSATE SODIUM 100MG CAPSULE PO SCH ×2 (09:00→21:05)
[2021-06-15] MEDS: PRENATAL VITAMINS CHEWABLE TABLET PO SCH (09:00)
[2021-06-15] MEDS ORDERED: fentaNYL 100 MCG/2 ML INJECTION As Ordered ONE (09:21)
[2021-06-15] MEDS ORDERED: oxyCODONE 5MG TAB PO PRN ×2 (09:45→10:55)
[2021-06-15] MEDS ORDERED: OXYTOCIN DRIP 30 UNITS in IV 1 EA IV SCH (09:45)
[2021-06-15] MEDS ORDERED: PROMETHAZINE 25 MG TAB PO PRN (09:45)
[2021-06-15] MEDS ORDERED: SIMETHICONE 80MG CHEW TAB PO PRN (09:45)
[2021-06-15] MEDS ORDERED: RHOGAM 300 MCG (1500 IU) INJ (J2790) IM SCH (09:45)
[2021-06-15] MEDS ORDERED: MEASLES,MUMPS,RUBELLA VACCINE INJ (MMR-II) (90707) SC SCH (09:45)
[2021-06-15] MEDS ORDERED: fentaNYL 100 MCG/2 ML INJECTION IV PRN (10:55)
[2021-06-15] MEDS ORDERED: diphenhydrAMINE 50MG/ML VIAL (J1200) As Ordered ONE (10:57)
[2021-06-15] MEDS ORDERED: diphenhydrAMINE 50MG/ML VIAL (J1200) IV PRN (11:00)
[2021-06-15] MEDS: diphenhydrAMINE 50MG/ML VIAL (J1200) IV PRN ×3 (11:05→21:03)
[2021-06-15] MEDS: ACETAMINOPHEN 500 MG TAB PO SCH ×3 (11:33→21:07)
[2021-06-15] MEDS: KETOROLAC 30 MG/ML 1ML VIAL IV SCH ×2 (15:03→21:04)
[2021-06-15] MEDS: LR 1,000 ML IV SCH ×2 (15:10→17:45)
[2021-06-16 02:00] VITALS: BP 111/57
[2021-06-16] MEDS: KETOROLAC 30 MG/ML 1ML VIAL IV SCH (02:44)
[2021-06-16] MEDS: ACETAMINOPHEN 500 MG TAB PO SCH ×4 (02:44→21:15)
[2021-06-16] MEDS: oxyCODONE 5MG TAB PO PRN ×2 (05:26→20:06)
[2021-06-16 06:00] VITALS: BP 117/67
[2021-06-16 06:00] LABS: HEMATOCRIT 29.5 % (36.0-47.0); HEMOGLOBIN 9.5 g/dl (12.0-15.5); MEAN CORPUSCULAR HEMOGLOBIN 28.5 pg (27.0-33.0); MEAN CORPUSCULAR HGB CONC 32.2 g/dl (32.0-36.5); MEAN CORPUSCULAR VOLUME 88.6 fl (80.0-96.0); PLATELET COUNT, AUTOMATED 211 10^3/uL (150-450); RED BLOOD COUNT 3.33 10^6/uL (4.00-5.40); WHITE BLOOD COUNT 13.7 10^3/uL (4.0-10.0)
[2021-06-16] MEDS: DOCUSATE SODIUM 100MG CAPSULE PO SCH ×2 (08:12→20:05)
[2021-06-16] MEDS: PRENATAL VITAMINS CHEWABLE TABLET PO SCH (08:12)
[2021-06-16 10:06] VITALS: BP 122/72
[2021-06-16] MEDS: IBUPROFEN 800 MG TAB PO SCH ×2 (11:43→20:06)
[2021-06-16 14:00] VITALS: BP 115/62
[2021-06-16 17:58] VITALS: BP 129/77
[2021-06-16 22:00] VITALS: BP 118/68
[2021-06-17 02:00] VITALS: BP 117/66
[2021-06-17] MEDS: IBUPROFEN 800 MG TAB PO SCH ×2 (02:38→10:31)
[2021-06-17] MEDS: ACETAMINOPHEN 500 MG TAB PO SCH ×2 (04:56→09:56)
[2021-06-17 06:00] VITALS: BP 118/75
[2021-06-17] MEDS: DOCUSATE SODIUM 100MG CAPSULE PO SCH (08:09)
[2021-06-17] MEDS: PRENATAL VITAMINS CHEWABLE TABLET PO SCH (08:09)
== END 2021-06-17 11:03 | disposition home or self-care (01) | DRG 785 ==
LOC: M LDI 05:16 → M OBS 11:36
PROVIDERS: ADMIT Obstetrics & Gynecology; ATTEND Obstetrics & Gynecology
PROC: 0UB70ZZ Excision of Bilateral Fallopian Tubes, Open Approach (ICD-10-PCS; 2021-06-15)
PROC: 10D00Z1 Extraction of Products of Conception, Low, Open Approach (ICD-10-PCS; principal; 2021-06-15 07:30)
DX: O34.211 Maternal care for low transverse scar from previous cesarean delivery (principal); Z3A.39 39 weeks gestation of pregnancy; Z37.0 Single live birth; Z30.2 Encounter for sterilization